=== PATIENT | male | born 1965 | race Native Hawaiian/Other Pacific Islander ===

== ENCOUNTER 2017-05-14 06:48 | Inpatient (IN) | payer OTHER ==
[2017-05-14] MEDS ORDERED: MORPHINE IV ONE (07:09)
[2017-05-14] MEDS ORDERED: ZOFRAN IV ONE (07:09)
--- NOTE | 2017-05-14 07:17 | XRay Report ---
AP CHEST: HISTORY: chest pain AP view of the chest demonstrates a normal mediastinal and cardiac contour with clear lungs and normal bony and soft tissue structures. IMPRESSION: Unremarkable AP chest.
[2017-05-14 07:19] LABS: Basophils % (Auto) 0.5 % (0.0-1.8); Eosinophils % (Auto) 2.8 % (0.0-4.3); Hematocrit 42.7 % (35.5-45.6); Hemoglobin 14.3 gm/dl (11.8-15.2); Mean Corpuscular HGB Conc 34 % (32-34); Mean Corpuscular Hemoglobin 29 pg (28-32); Mean Corpuscular Volume 87 fl (84-94); Platelet Count 273 K/mm3 (140-440); Red Blood Count 4.89 M/mm3 (3.65-5.03); White Blood Count 4.6 K/mm3 (4.5-11.0)
--- NOTE | 2017-05-14 07:20 | Emergency Department Report ---
HPI - General Chief Complaint: Chest Pain Time Seen by Provider: 05/14/17 07:02 - [facility] HPI: Room 22 The patient is a 51-year-old male presenting with a chief complaint of chest pain. The patient states his symptoms began this morning at approximately 05: 43 while walking he developed right-sided chest pain described as sharp and constant in nature. The patient states the pain began to worsen and he developed shortness of breath in addition to nausea. Patient denies vomiting. The patient is uncertain if he became diaphoretic. Patient denies any preceding trauma or previous episodes of the same. Patient does admit pleurisy but denies any recent flights or long car trips. Patient states he developed a cough with his pain but has been nonproductive. The patient currently gives his pain a score of 8/10. The patient states he's never had a stress test or cardiac catheterization Location: Chest Duration: Constant since 05:43 Quality: Sharp Severity: 8/10 Modifying factors: [see above] Context: [see above] Mode of transportation: EMS ED Past Medical Hx - Past Medical History Previous Medical History?: Yes Hx Kidney Stones: Yes - Surgical History Past Surgical History?: No - Family History Family history: no significant - Social History Smoking Status: Never Smoker Substance Use Type: None (denies illicit drug use) - Medications Home Medications: Home Medications Medication Instructions Recorded Confirmed Last Taken Type No Known Home Medications [No 05/14/17 05/14/17 Unknown History Reported Home Medications] ED Review of Systems ROS: Stated complaint: RT SIDE PAIN Other details as noted in HPI Comment: All other systems reviewed and negative Constitutional: denies: chills, fever Eyes: denies: eye pain, eye discharge, vision change ENT: denies: ear pain, throat pain Respiratory: cough, shortness of breath, other (pleurisy) Cardiovascular: chest pain Endocrine: no symptoms reported Gastrointestinal: nausea. denies: abdominal pain, vomiting, diarrhea Genitourinary: denies: urgency, dysuria Musculoskeletal: denies: back pain, joint swelling, arthralgia Skin: denies: rash, lesions Neurological: denies: headache, weakness, paresthesias Psychiatric: denies: anxiety, depression Hematological/Lymphatic: denies: easy bleeding, easy bruising Physical Exam - Physical Exam Vital Signs: Vital Signs 05/14/17 06:53 Temperature 98.4 F Pulse Rate 69 Respiratory 15 Rate Blood Pressure 124/73 Blood Pressure 124/73 [Left] O2 Sat by Pulse 98 Oximetry Physical Exam: GENERAL: The patient is well-developed well-nourished male lying on stretcher appearing to be in moderate discomfort. [] HEENT: Normocephalic. Atraumatic. Extraocular motions are intact. Patient has moist mucous membranes. NECK: Supple. Trachea midline CHEST/LUNGS: Clear to auscultation. Breath sounds bilaterally. There is no respiratory distress noted. HEART/CARDIOVASCULAR: Regular. There is no tachycardia. There is no gallop rub or murmur. ABDOMEN: Abdomen is soft, nontender. Patient has normal bowel sounds. There is no abdominal distention. SKIN: There is no rash. There is no edema. There is no diaphoresis. NEURO: The patient is awake, alert, and oriented. The patient is cooperative. The patient has normal speech MUSCULOSKELETAL: There is no evidence of acute injury. ED Course Vital Signs 05/14/17 06:53 Temperature 98.4 F Pulse Rate 69 Respiratory 15 Rate Blood Pressure 124/73 Blood Pressure 124/73 [Left] O2 Sat by Pulse 98 Oximetry - Reevaluation(s) Reevaluation #1: 05/14/17 08:01 Patient resting comfortably and states pain has resolved ED Medical Decision Making - Lab Data Result diagrams: 05/14/17 07:06 05/14/17 07:06 Laboratory Tests 05/14/17 05/14/17 05/14/17 07:06 07:06 07:06 WBC 4.6 RBC 4.89 Hgb 14.3 Hct 42.7 MCV 87 MCH 29 MCHC 34 RDW 13.0 L Plt Count 273 Lymph % (Auto) 26.6 Freestone % (Auto) 11.1 H Eos % (Auto) 2.8 Baso % (Auto) 0.5 Lymph # 1.2 Freestone # 0.5 Eos # 0.1 Baso # 0.0 Seg Neutrophils % 59.0 Seg Neutrophils # 2.7 PT INR APTT D-Dimer Carbon Dioxide 24 BUN 20 Creatinine 0.8 Estimated GFR > 60 BUN/Creatinine Ratio 25.00 Glucose 88 Calcium 8.9 Total Bilirubin 0.70 AST 20 ALT 24 Alkaline Phosphatase 56 Total Creatine Kinase 152 CK-MB (CK-2) 2.6 CK-MB (CK-2) Rel Index 1.7 Troponin T < 0.010 Total Protein 7.1 Albumin 4.1 Albumin/Globulin Ratio 1.4 05/14/17 07:19 WBC RBC Hgb Hct MCV MCH MCHC RDW Plt Count Lymph % (Auto) Freestone % (Auto) Eos % (Auto) Baso % (Auto) Lymph # Freestone # Eos # Baso # Seg Neutrophils % Seg Neutrophils # PT 12.9 INR 0.98 APTT 28.4 D-Dimer < 135.00 Carbon Dioxide BUN Creatinine Estimated GFR BUN/Creatinine Ratio Glucose Calcium Total Bilirubin AST ALT Alkaline Phosphatase Total Creatine Kinase CK-MB (CK-2) CK-MB (CK-2) Rel Index Troponin T Total Protein Albumin Albumin/Globulin Ratio Sodium 140, potassium 4.1, chloride 103 - EKG Data -: EKG Interpreted by Me EKG shows normal: sinus rhythm Rate: normal - EKG Data When compared to previous EKG there are: previous EKG unavailable Interpretation: normal EKG (no ischemic changes seen) - Radiology Data Radiology results: report reviewed (chest x-ray), image reviewed (chest x-ray) interpreted by me: Chest x-ray-no focal infiltrates, no pneumothorax - Differential Diagnosis ACS, PE, pericarditis, costochondritis, pneumothorax Critical care attestation.: If time is entered above; I have spent that time in minutes in the direct care of this critically ill patient, excluding procedure time. ED Disposition Clinical Impression: Chest pain, Shortness of breath Disposition: OP ADMIT IP TO THIS HOSP Is pt being admited?: Yes Does the pt Need Aspirin: Yes Condition: Fair Instructions: Chest Pain (ED) Referrals: PRIMARY CARE, [Primary Care Provider] - 3-5 Days Time of Disposition: 08:00 (hospitalist paged)
[2017-05-14 07:37] LABS: Alanine Aminotransferase 24 units/L (7-56); Albumin 4.1 g/dL (3.9-5); Albumin/Globulin Ratio 1.4 %; Alkaline Phosphatase 56 units/L (35-129); Anion Gap 17 mmol/L; Blood Urea Nitrogen 20 mg/dL (9-20); Calcium 8.9 mg/dL (8.4-10.2); Carbon Dioxide 24 mmol/L (22-30); Glucose 88 mg/dL (75-100); Potassium 4.1 mmol/L (3.6-5.0); Sodium 140 mmol/L (137-145); Total Protein 7.1 g/dL (6.3-8.2)
[2017-05-14 07:44] LABS: INR 0.98 (0.87-1.13)
[2017-05-14 07:45] LABS: Creatine Kinase MB 2.6 ng/mL (0.0-4.0)
[2017-05-14 07:45] LABS: Partial Thromboplastin Time 28.4 Sec. (24.2-36.6)
[2017-05-14] MEDS ORDERED: ASPIRIN PO ONE (08:01)
[2017-05-14] MEDS ORDERED: NITRO-BID 2% TP ONE (08:01)
--- NOTE | 2017-05-14 08:08 | Admit Criteria Form ---
Admission Criteria Documentation: CARDIOLOGY GRG Clinical Indications for Admission to Inpatient Care ( Place 'X' for any and all applicable criteria): Hospital admission is needed for appropriate care of the patient because of ANY ONE of the following (1): [ ] I. Hemodynamic instability as indicated by ALL of the following (1)(2)(3) (4)(5) [ ]a) Vital signs or other findings not as expected for chronic patient condition or baseline [ ]b) Instability indicated by ANY ONE of the following: [ ]i) Hypotension [ ]ii) Symptomatic Tachycardia unresponsive to treatment ( e.g., analgesia, fluids, sedation as indicated) [ ]iii) Inadequate perfusion indicated by ANY ONE of the following: [ ] 1) Lactic acidosis (> 2 mmol/L) [ ] 2) New abnormal capillary refill (> 3 seconds) [ ] 3) Reduced urine output [ ] 4) New altered mental status [ ]iv) Orthostatic vital sign changes unresponsive to treatment (e.g., fluids) [ ]v) IV inotropic or vasopressor medication required to maintain adequate blood pressure or perfusion [ ] II. Severe heart failure as indicated by ANY ONE of the following(17)(18) [ ]a) Respiratory distress [ ]b) Hypotension [ ]c) Anasarca (refractory to outpatient therapy) [ ]d) Cardiac arrhythmias of immediate concern [ ]e) Myocardial ischemia [ ] III. Cardiac arrhythmias or findings of immediate concern indicated by ANY ONE of the following (19)(20): [ ] a) Heart rhythms that are inherently dangerous or unstable indicated by ANY ONE of the following (21)(22)(23): [ ] i) Resuscitated ventricular fibrillation or cardiac arrest [ ] ii) Ventricular escape rhythm [ ] iii) Sustained ventricular tachycardia (30 seconds or more of ventricular rhythm at greater than 100 beats per minute) [ ] iv) Nonsustained ventricular tachycardia and ANY ONE of the following: [ ] 1) Suspected cardiac ischemia as cause or consequence of ventricular tachycardia [ ] 2) In setting of acute myocarditis [ ] b) Unstable cardiac conduction defects indicated by ANY ONE of the following(23)(24)(25) [ ] i) Type II second-degree atrioventricular block [ ]ii) Third-degree atrioventricular block [ ]iii) New-onset left bundle branch block with suspected myocardial ischemia [ ]c) Any heart rhythm and ANY ONE of the following (21)(22)(26)(27) (28) [ ] i) Continuous long-term ECG monitoring needed (e.g., initiation of drug requiring monitoring for more than 24 hours) [ ] ii) Patient has automatic implanted cardioverter defibrillator that is repeatedly firing, malfunctioning, or in need of immediate adjustment of settings beyond the scope of ambulatory or observation care [ ]d) Heart rhythms of concern due to ANY ONE of the following: [ ] i) Hypotension [ ] ii) Respiratory distress [ ] iii) Association with other significant symptoms (e.g., bradycardia with syncope or ongoing dizziness, supraventricular tachycardia with chest pain (14)(15)(17) [ ] IV. Monitoring for cardiac contusion beyond the scope of observation care needed [A](30)(31)(32) [ ] V. Surgical or device complication (e.g., valve replacement complication , pacemaker dysfunction) (35)(41)(44)(45)(46) [ ] . Inpatient palliative care needed. [B](49) Also use Inpatient Palliative Care Criteria [ ] VII. Nonbacterial thrombotic (marantic) endocarditis (36)(43)(47)(48) [X] VIII. Cardiology condition, symptom, or finding for which emergency and observation care has failed or are not considered appropriate. [ ] IX. Acute valvular disease requiring inpatient as indicated by ANY ONE of the following (41) [ ]a) Acute valvular regurgitation (42) [ ]b) Noninfectious valvulitis (43) [ ]c) Obstructive valve thrombosis [ ]d) Paravalvular leak [ ]e) Other significant valvular disorder remaining after emergency or observation level of care (as appropriate) [ ]X. Pericardial disease requiring inpatient treatment as indicated by ANY ONE of the following (33)(34)(35)(36)(37) [ ]a) Suspected tamponade (38)(39)(40) [ ]b) Hemopericardium [ ]c) Other significant pericardial disorder remaining after emergency or observation level of care (as appropriate) [ ] XI. Cardiac ischemia beyond scope of emergency and observation care. [ ] XII. Hypertension requiring inpatient treatment as indicated by ANY ONE of the following (6)(7)(8) [ ]a) SBP greater than 220 mm Hg or DBP greater than 120 mmHg despite treatment [ ]b) SBP greater than 140 mm Hg or DBP greater than 100 mm Hg with evidence of acute end organ damage as indicated by ANY ONE of the following [ ] i) Altered mental status [ ] ii) Acute renal failure as indicated by new onset of ANY ONE of the following (9)(10)(11)(12)(13) [ ]1) 3-fold rise in serum creatinine from baseline [ ]2) Serum creatinine greater than 4 mg/dL ( 354 micromoles/L) with acute rise greater than 0.5 mg/dL (44.2 micromoles/L) [ ]3) Reduction of more than 75% in estimated glomerular filtration rate from baseline [ ]4) Estimated glomerular filtration rate less than 35 mL/min/1.73m2 (0.59 mL/sec/1.73m2) in child up to 18 years of age [ ]5) Cessation of urine output indicated by ALL of the following [ ]A. Adequate volume status [ ]B. Inadequate urine output as indicated by ANY ONE of the following [ ]a. Urine output less than 0.3 mL/kg/hr for 24 hours [ ]b. Anuria (urine output less than 0.1 mL/kg/hr) for 12 hours [ ] iii) Aortic dissection [ ] iv) Myocardial Ischemia [ ] v) Left ventricular heart failure [ ]vi) Retinal Hemorrhage [ ]vii) Other significant finding [ ]c) Hypertension in child requiring inpatient treatment as indicated by ALL of the following(14)(15)(16) [ ] i) Outpatient treatment not effective, not available, or not appropriate [ ]ii) SBP or DBP greater than 95th percentile for age [ ]iii) Evidence of acute end organ damage as indicated by ANY ONE of the following [ ]1) Altered mental status [ ]2) Acute renal failure as indicated by new onset of ANY ONE of the following(9)(10)(11)(12)(13) [ ]A. 3-fold rise in serum creatinine from baseline [ ]B. Serum creatinine greater than 4 mg/dL (354 micromoles/L) with acute rise greater than 0.5 mg/dL (44.2 micromoles/L) [ ]C. Reduction of more than 75% in estimated glomerular filtration rate from baseline [ ]D. Estimated glomerular filtration rate less than 35 mL/min/1.73m2 (0.59 mL/sec/1.73m2) in child up to 18 years of age [ ]E. Cessation of urine output indicated by ALL of the following [ ]a. Adequate volume status [ ]b. Inadequate urine output as indicated by ANY ONE of the following [ ]i) Urine output less than 0.3 mL/kg/hr for 24 hours [ ]ii) Anuria ( urine output less than 0.1 mL/kg/hr) for 12 hours [ ]3) Severe headache [ ]4) Visual disturbance [ ]5) Retinal hemorrhage [ ]6) Other significant finding [ ]XIII. Complications of transplanted heart indicated by ANY ONE of the following(61): [ ]a) Acute graft rejection requiring inpatient management (eg, intravenous immunosuppression)(62)(63) [ ]b) Acute graft heart failure indicated by ANY ONE of the following(64): [ ]i) Hemodynamic instability [ ]ii) Cardiac arrhythmias of immediate concern [ ]iii) Pulmonary edema that is very severe (eg, mechanical ventilation needed, imminent or likely, need for 100% oxygen to keep oxygen saturation above 90%) [ ]iv) Pulmonary edema that is persistent as indicated by ALL of the following: [ ]1) New need for oxygen therapy to keep oxygen saturation above 90% (or increased FiO2 need from baseline) [ ]2) Has not improved sufficiently with emergency department or observation care IV diuretics or other heart failure treatments[E] [ ]v) Altered mental status that is severe or persistent [ ]vi) Increased creatinine (new on laboratory test) with reduction of more than 50% in estimated glomerular filtration rate from baseline [ ]vii) Progressively (ongoing) rising creatinine (known from past laboratory test) with reduction of more than 25% in estimated glomerular filtration rate from baseline [ ]viii) Acute renal failure [ ]ix) Acute peripheral ischemia (eg, examination shows pulseless, cool, mottled, or cyanotic extremity) [ ]x) Pulmonary artery catheter monitoring needed [ ]xi) Other sign or symptom of heart failure requiring inpatient treatment (ie, too severe or not responsive to outpatient and observation care treatment) [ ]c) Infection requiring inpatient management (eg, Hemodynamic instability, need for intravenous antimicrobial treatment)(66)(67)(68)(69)(70) [ ]d) Cardiac allograft vasculopathy requiring inpatient management ( eg evidence of cardiac ischemia)(71) [ ]e) Other complication of transplanted heart (eg, stroke, severe pulmonary hypertension, severe valvular dysfunction) requiring inpatient management(72) The original [facility] content created by [facility] has been revised. The portions of the content which have been revised are identified through the use of italic text or in bold, and [facility] has neither reviewed nor approved the modified material. All other unmodified content is copyright [facility]. Please see references footnoted in the original [facility] edition 2016 Admission Criteria Met: Yes
[2017-05-14] MEDS ORDERED: ZOFRAN IV PRN (08:48)
[2017-05-14] MEDS ORDERED: DULCOLAX PR PRN (08:48)
[2017-05-14] MEDS ORDERED: TYLENOL PO PRN (08:48)
[2017-05-14] MEDS ORDERED: D5NS 1,000 ML IV SCH (09:00)
[2017-05-14] MEDS ORDERED: NITROSTAT SL PRN (09:03)
[2017-05-14] MEDS ORDERED: MILK OF MAGNESIA PO PRN (09:30)
[2017-05-14] MEDS ORDERED: ASPIRIN PO SCH (10:00)
[2017-05-14] MEDS ORDERED: LOVENOX SUB-Q SCH (10:00)
[2017-05-14] MEDS ORDERED: MORPHINE IV PRN (10:00)
--- NOTE | 2017-05-14 10:34 | History and Physical Report ---
<THIERNO OLIVO - Last Filed: 05/14/17 13:27> History of Present Illness Date of examination: 05/14/17 Date of admission: 05/14/17 08:48 Chief complaint: Right chest pain and shortness of breath History of present illness: Patient is a 51 years old Citizen Of [place] male with no past medical history, who presented to the ED complaining of right chest pain. He states that the pain began this morning and consisted of a dull pain. The pain was located over his right chest area somewhat near his shoulder; non radiating. The onset of pain came while the patient was at work. He did not sit and rest during the pain, but continued to do his job. Patient is a truck body repairer. He noticed the pain as he was pulling something on his car. The pain is a dull, preceded by a short interval of a sharp pain. The sharp pain lasted around 1 minute. The patient did experience some tingling and numbness in his right arm and leg after the pain ceased.He continued to have several episodes of the pain throughout the morning, so his decided to take him to the ED around 6:00 am. The painful episodes did not increase in intensity or severity during this time. At the ED the patient was given nitroglycerin, ASA and morphine which he claims helped alleviate the pain somewhat. The patient currently rated his pain a score of 5/ 10. He experienced shortness of breath, nausea, and diaphoresis during these episodes of pain. He denies vomiting. Patient does admit pleurisy but denies any recent is flights or long car trips. He has never had chest pain in the past. Past History Past Medical History: other (kidney stone ) Past Surgical History: Other (kidney stone removed) Social history: , lives with family Family history: diabetes, hypertension Medications and Allergies Allergies Allergy/AdvReac Type Severity Reaction Status Date / Time Penicillins AdvReac Anaphylaxis Verified 07/22/13 17:18 Home Medications Medication Instructions Recorded Confirmed Last Taken Type No Known Home Medications [No 05/14/17 05/14/17 Unknown History Reported Home Medications] Active Meds: Active Medications Acetaminophen (Tylenol) 650 mg PO Q4H PRN PRN Reason: Pain MILD(1-3)/Fever >100.5/ANGULO Aspirin (Aspirin) 325 mg PO DAILY [facility] Last Admin: 05/14/17 09:31 Dose: Not Given Bisacodyl (Dulcolax) 10 mg ND QDAY PRN PRN Reason: Constipation unrelieved by MOM Enoxaparin Sodium (Lovenox) 40 mg SUB-Q QDAY [facility] Dextrose/Sodium Chloride (D5ns) 1,000 mls @ 75 mls/hr IV DIRECT [facility] Magnesium Hydroxide (Milk Of Magnesia) 30 ml PO Q4H PRN PRN Reason: Constipation Morphine Sulfate (Morphine) 2 mg IV Q4H PRN PRN Reason: Pain, Moderate (4-6) Nitroglycerin (Nitrostat) 0.4 mg SL .Q5MIN PRN PRN Reason: Chest Pain Ondansetron HCl (Zofran) 4 mg IV Q4H PRN PRN Reason: Nausea And Vomiting Review of Systems Constitutional: sweats, no weight gain, no fever, no chills Ears, nose, mouth and throat: no ear pain, no ear discharge, no tinnitis Cardiovascular: chest pain, shortness of breath, no orthopnea, no palpitations, no rapid/irregular heart beat Respiratory: no cough with sputum, no excessive sputum, no hemoptysis Gastrointestinal: nausea, no abdominal pain, no vomiting, no diarrhea, no constipation Genitourinary Male: no hematuria, no flank pain, no discharge, no urinary frequency Rectal: no pain, no incontinence, no bleeding Musculoskeletal: no neck stiffness, no neck pain, no shooting arm pain Integumentary: no rash, no pruritis, no redness Neurological: no transient paralysis, no paralysis, no weakness, no parathesias Psychiatric: no anxiety, no memory loss, no change in sleep habits, no sleep disturbances Endocrine: no cold intolerance, no heat intolerance, no polyphagia, no excessive thirst Hematologic/Lymphatic: no easy bruising, no easy bleeding Allergic/Immunologic: no urticaria, no allergic rhinitis Exam - Constitutional Vitals: Temp Pulse Resp BP Pulse Ox 98.4 F 61 18 116/71 100 05/14/17 06:53 05/14/17 10:06 05/14/17 10:06 05/14/17 10:06 05/14/17 10:06 General appearance: Present: no acute distress - EENT Eyes: Present: PERRL ENT: hearing intact - Neck Neck: Present: supple - Respiratory Respiratory effort: normal Respiratory: bilateral: CTA - Cardiovascular Rhythm: regular (61) - Extremities Extremities: no ischemia, No edema Peripheral Pulses: within normal limits - Abdominal General gastrointestinal: Present: soft, non-tender Male genitourinary: Present: deferred - Rectal Rectal Exam: deferred - Integumentary Integumentary: Present: clear, warm, dry - Musculoskeletal Musculoskeletal: strength equal bilaterally - Psychiatric Psychiatric: appropriate mood/affect - Neurologic Neurologic: CNII-XII intact - Allied Health Allied health notes reviewed: nursing Results - Labs CBC & Chem 7: 05/14/17 07:06 05/14/17 07:06 Labs: Laboratory Last Values WBC 4.6 K/mm3 (4.5-11.0) 05/14/17 07:06 RBC 4.89 M/mm3 (3.65-5.03) 05/14/17 07:06 Hgb 14.3 gm/dl (11.8-15.2) 05/14/17 07:06 Hct 42.7 % (35.5-45.6) 05/14/17 07:06 MCV 87 fl (84-94) 05/14/17 07:06 MCH 29 pg (28-32) 05/14/17 07:06 MCHC 34 % (32-34) 05/14/17 07:06 RDW 13.0 % (13.2-15.2) L 05/14/17 07:06 Plt Count 273 K/mm3 (140-440) 05/14/17 07:06 Lymph % (Auto) 26.6 % (13.4-35.0) 05/14/17 07:06 [place] % (Auto) 11.1 % (0.0-7.3) H 05/14/17 07:06 Eos % (Auto) 2.8 % (0.0-4.3) 05/14/17 07:06 Baso % (Auto) 0.5 % (0.0-1.8) 05/14/17 07:06 Lymph # 1.2 K/mm3 (1.2-5.4) 05/14/17 07:06 [place] # 0.5 K/mm3 (0.0-0.8) 05/14/17 07:06 Eos # 0.1 K/mm3 (0.0-0.4) 05/14/17 07:06 Baso # 0.0 K/mm3 (0.0-0.1) 05/14/17 07:06 Seg Neutrophils % 59.0 % (40.0-70.0) 05/14/17 07:06 Seg Neutrophils # 2.7 K/mm3 (1.8-7.7) 05/14/17 07:06 PT 12.9 Sec. (12.2-14.9) 05/14/17 07:19 INR 0.98 (0.87-1.13) 05/14/17 07:19 APTT 28.4 Sec. (24.2-36.6) 05/14/17 07:19 D-Dimer < 135.00 ng/mlDDU (0-234) 05/14/17 07:19 Carbon Dioxide 24 mmol/L (22-30) 05/14/17 07:06 BUN 20 mg/dL (9-20) 05/14/17 07:06 Creatinine 0.8 mg/dL (0.8-1.5) 05/14/17 07:06 Estimated GFR > 60 ml/min 05/14/17 07:06 BUN/Creatinine Ratio 25.00 % 05/14/17 07:06 Glucose 88 mg/dL (75-100) 05/14/17 07:06 Calcium 8.9 mg/dL (8.4-10.2) 05/14/17 07:06 Total Bilirubin 0.70 mg/dL (0.1-1.2) 05/14/17 07:06 AST 20 units/L (5-40) 05/14/17 07:06 ALT 24 units/L (7-56) 05/14/17 07:06 Alkaline Phosphatase 56 units/L (35-129) 05/14/17 07:06 Total Creatine Kinase 152 units/L (55-170) 05/14/17 07:06 CK-MB (CK-2) 2.6 ng/mL (0.0-4.0) 05/14/17 07:06 CK-MB (CK-2) Rel Index 1.7 (0-4) 05/14/17 07:06 Troponin T < 0.010 ng/mL (0.00-0.029) 05/14/17 09:09 Total Protein 7.1 g/dL (6.3-8.2) 05/14/17 07:06 Albumin 4.1 g/dL (3.9-5) 05/14/17 07:06 Albumin/Globulin Ratio 1.4 % 05/14/17 07:06 - Imaging and Cardiology Chest x-ray: image reviewed (unremarkable AP chest) Assessment and Plan Assessment and plan: Patient is a 51 years old Citizen Of [place] male with no past medical history, who presented to the ED complaining of right chest pain. He experienced shortness of breath, nausea, and diaphoresis during these episodes of pain. He denies vomiting. Patient does admit pleurisy but denies any recent flights, trauma or long car trips. He has never had chest pain in the past. Chest x-ray-no focal infiltrates, no pneumothorax. Cardiac enzyme negative and EKG normal sinus rhythm. ASSESSMENT/PLAN Chest pain We will admit to telemetry 12-lead EKG obtained, we also get another EKG ordered for any changes have taken since the first obtain We will do serial cardiac enzymes and follow cardiac enzymes troponin. Fluid hydration Stress test Lexiscan ordered Start on aspirin Controlled with morphine Possible Chest trauma Chest x-ray-no focal infiltrates, no pneumothorax Chest CT ordered DVT prophylaxis Lovenox <TAMIA MERCADO R - Last Filed: 05/14/17 14:41> History of Present Illness Date of admission: 05/14/17 08:48 Medications and Allergies Active Meds: Active Medications Acetaminophen (Tylenol) 650 mg PO Q4H PRN PRN Reason: Pain MILD(1-3)/Fever >100.5/ANGULO Aspirin (Aspirin) 325 mg PO DAILY [facility] Last Admin: 05/14/17 09:31 Dose: Not Given Bisacodyl (Dulcolax) 10 mg ND QDAY PRN PRN Reason: Constipation unrelieved by MOM Enoxaparin Sodium (Lovenox) 40 mg SUB-Q QDAY [facility] Dextrose/Sodium Chloride (D5ns) 1,000 mls @ 75 mls/hr IV DIRECT [facility] Magnesium Hydroxide (Milk Of Magnesia) 30 ml PO Q4H PRN PRN Reason: Constipation Morphine Sulfate (Morphine) 2 mg IV Q4H PRN PRN Reason: Pain, Moderate (4-6) Nitroglycerin (Nitrostat) 0.4 mg SL .Q5MIN PRN PRN Reason: Chest Pain Ondansetron HCl (Zofran) 4 mg IV Q4H PRN PRN Reason: Nausea And Vomiting Exam - Constitutional Vitals: Temp Pulse Resp BP Pulse Ox 97.7 F 48 L 18 116/68 99 05/14/17 12:00 05/14/17 12:35 05/14/17 12:00 05/14/17 12:00 05/14/17 12:00 Results - Labs CBC & Chem 7: 05/14/17 07:06 05/14/17 07:06 Labs: Laboratory Last Values WBC 4.6 K/mm3 (4.5-11.0) 05/14/17 07:06 RBC 4.89 M/mm3 (3.65-5.03) 05/14/17 07:06 Hgb 14.3 gm/dl (11.8-15.2) 05/14/17 07:06 Hct 42.7 % (35.5-45.6) 05/14/17 07:06 MCV 87 fl (84-94) 05/14/17 07:06 MCH 29 pg (28-32) 05/14/17 07:06 MCHC 34 % (32-34) 05/14/17 07:06 RDW 13.0 % (13.2-15.2) L 05/14/17 07:06 Plt Count 273 K/mm3 (140-440) 05/14/17 07:06 Lymph % (Auto) 26.6 % (13.4-35.0) 05/14/17 07:06 [place] % (Auto) 11.1 % (0.0-7.3) H 05/14/17 07:06 Eos % (Auto) 2.8 % (0.0-4.3) 05/14/17 07:06 Baso % (Auto) 0.5 % (0.0-1.8) 05/14/17 07:06 Lymph # 1.2 K/mm3 (1.2-5.4) 05/14/17 07:06 [place] # 0.5 K/mm3 (0.0-0.8) 05/14/17 07:06 Eos # 0.1 K/mm3 (0.0-0.4) 05/14/17 07:06 Baso # 0.0 K/mm3 (0.0-0.1) 05/14/17 07:06 Seg Neutrophils % 59.0 % (40.0-70.0) 05/14/17 07:06 Seg Neutrophils # 2.7 K/mm3 (1.8-7.7) 05/14/17 07:06 PT 12.9 Sec. (12.2-14.9) 05/14/17 07:19 INR 0.98 (0.87-1.13) 05/14/17 07:19 APTT 28.4 Sec. (24.2-36.6) 05/14/17 07:19 D-Dimer < 135.00 ng/mlDDU (0-234) 05/14/17 07:19 Carbon Dioxide 24 mmol/L (22-30) 05/14/17 07:06 BUN 20 mg/dL (9-20) 05/14/17 07:06 Creatinine 0.8 mg/dL (0.8-1.5) 05/14/17 07:06 Estimated GFR > 60 ml/min 05/14/17 07:06 BUN/Creatinine Ratio 25.00 % 05/14/17 07:06 Glucose 88 mg/dL (75-100) 05/14/17 07:06 Calcium 8.9 mg/dL (8.4-10.2) 05/14/17 07:06 Total Bilirubin 0.70 mg/dL (0.1-1.2) 05/14/17 07:06 AST 20 units/L (5-40) 05/14/17 07:06 ALT 24 units/L (7-56) 05/14/17 07:06 Alkaline Phosphatase 56 units/L (35-129) 05/14/17 07:06 Total Creatine Kinase 152 units/L (55-170) 05/14/17 07:06 CK-MB (CK-2) 2.6 ng/mL (0.0-4.0) 05/14/17 07:06 CK-MB (CK-2) Rel Index 1.7 (0-4) 05/14/17 07:06 Troponin T < 0.010 ng/mL (0.00-0.029) 05/14/17 09:09 Total Protein 7.1 g/dL (6.3-8.2) 07/19/17 07:06 Albumin 4.1 g/dL (3.9-5) 05/14/17 07:06 Albumin/Globulin Ratio 1.4 % 05/14/17 07:06 Assessment and Plan Assessment and plan: I have personally seen and examined the patient. I reviewed the Nurse Practitioner's note and agree with the assessment and plan with the following additions/corrections: Patient is a 51-year-old [place] speaking man who presents with atypical very severe right sided CP worse with movement and breathing. NO cough, fevers. He describes possible injury while lifting on his job. So I ordered CT chest. CTA chest not done because D-Dimer is negative. Stress test
[2017-05-14] MEDS ORDERED: LEXISCAN IV ONE ×2 (11:07→11:09)
[2017-05-14 14:30] VITALS: BP 105/69
--- NOTE | 2017-05-14 14:47 | Cat Scan Report ---
CT CHEST WITH CONTRAST: HISTORY: Chest pain, injury. TECHNIQUE: Helical CT following IV contrast. Sagittal and coronal reformatted images. FINDINGS: Heart size is normal. There is no evidence of adenopathy within the mediastinum. Pulmonary jose l are free of any mass and the lungs are clear of infiltrates. The pleura is unremarkable. No masses involve the chest wall. The bony structures are intact. Aberrant origin of the right subclavian artery is noted. No abnormalities are noted within the upper abdomen. The adrenal glands are normal. IMPRESSION: Unremarkable CT scan of the chest. No acute injury identified. Aortic arch variant.
--- NOTE | 2017-05-14 14:51 | Discharge Summary ---
Providers - Providers Date of Admission: 05/14/17 08:48 Date of discharge: 05/14/17 Attending physician: TAMIA MERCADO Primary care physician: SHERYL OSMAN MD Hospitalization Condition: Stable Hospital course: Patient is a 51-year-old [place] speaking man who presents with atypical very severe right sided CP worse with movement and breathing. NO cough, fevers. He describes possible injury while lifting on his job. So I ordered CT chest. CTA chest not done because D-Dimer is negative. Stress test normal, read as normal prelim, CT chest unremarkable. Discussed with radiology Dr. Arzate Discharge diagnosis: -Right chest pain most likely costochondritis Disposition: DC-01 TO HOME OR SELFCARE Time spent for discharge: 36 minutes Core Measure Documentation - Palliative Care Palliative Care/ Comfort Measures: Not Applicable - Core Measures Any of the following diagnoses?: none - VTE Discharge Requirements Deep Vein Thrombosis/Pulmonary Embolism Present on Admission: No Has pt received <5 days of overlap therapy or INR<2.0: No Anticoagulant overlap therapy prescribed at discharge: No Contraindication No Overlap Therapy order at DC: Not Indicated Exam - Physical Exam Narrative exam: GEN: WDWN, NAD, AWAKE, ALERT, ORIENTATED x 3 HEENT: NCAT, PERRL, EOMI, OP CLEAR NECK: SUPPLE, NO THYROMEGALY, NO JVD, NO LAD CVS: RRR, NORMAL S1S2 LUNGS/CHEST: CTA B, NORMAL CHEST EXPANSION B, GOOD AIR ENTRY B, right chest wall tenderness ABD: SOFT, NTND, GBS, NO REBOUND OR GUARDING EXT/SKIN: NO SIGNIFICANT EDEMA OR RASH MSK: FROM X 4 EXTREMITIES NEURO: CN 2-12 GROSSLY INTACT, NO FOCAL DEFICITS PSY: CALM - Constitutional Vitals: Temp Pulse Resp BP Pulse Ox 97.7 F 48 L 18 116/68 99 05/14/17 12:00 05/14/17 12:35 05/14/17 12:00 05/14/17 12:00 05/14/17 12:00 Plan Activity: other (no strenous activites until cleared by PCP. ) Diet: regular Additional Instructions: Get rest, use over the counter Advil as needed for pain , take with meal and pepcid Follow up with: PRIMARY CARE, [Primary Care Provider] - 3-5 Days Forms: Work/School Release Form
== END 2017-05-14 16:11 | disposition home or self-care (01) | DRG 206 ==
LOC: ED 06:48 → 4A 08:48
PROVIDERS: ADMIT Internal Medicine; ATTEND Internal Medicine
DX: M94.0 Chondrocostal junction syndrome [Tietze] (principal); R06.02 Shortness of breath; Z87.442 Personal history of urinary calculi; Z83.3 Family history of diabetes mellitus; Z82.49 Family history of ischemic heart disease and other diseases of the circulatory system; Z88.0 Allergy status to penicillin
CPT/HCPCS: 36415; 71010; 71260; 78452; 80053; 82550; 82553; 84484; 85025; 85379; 85610; 85730; 93005; 93010; 93017; 96374; 96375; 99285; A9502; J2270; J2405; J2785; Q9967